=== PATIENT | female | born 1985 | race Caucasian/White ===

== ENCOUNTER 2022-03-26 11:03 | Emergency (ER) | payer BC ==
[~2022-03-26] VITALS: Ht 157.5 cm; Wt 60.8 kg
[2022-03-26 11:11] VITALS: BP 137/91
[2022-03-26] MEDS ORDERED: PROCHLORPERAZINE 10 MG/2 ML VIAL IM ONE (12:00)
--- NOTE | 2022-03-26 12:25 | NUR ---
37F PRESENTS TO ED WITH C/O INTERMITTENT HEADACHES X4 DAYS. PT REPORTS A CONSTANT, THROBBING LIKE, 10/10 NON RADIATING PAIN, AND INTERMITTENT NAUSEA; DENIES ANY VOMITING EPISODES. PT REPORTS TAKING NAPROSYN AT 1030 WITH MILD RELIEF. PT DENIES TRAUMA/INJURY, VISION CHANGES OR DIZZINESS.
[2022-03-26] MEDS ORDERED: IMI50 PO (12:46)
--- NOTE | 2022-03-26 12:51 | NUR ---
Patient discharged with v/s stable. Written and verbal after care instructions about migraine headache given and explained. Patient alert, oriented and verbalized understanding of instructions. Ambulatory with steady gait. All questions addressed prior to discharge. ID band removed. Patient advised to follow up with PMD. Rx of Sumatriptan given. Patient educated on indication of medication including possible reaction and side effects. Opportunity to ask questions provided and answered.
== END 2022-03-26 12:51 | disposition home or self-care (01) ==
LOC: MED 11:03
DX: G43.909 Migraine, unspecified, not intractable, without status migrainosus (principal); R11.0 Nausea; Z79.899 Other long term (current) drug therapy; Z91.012 Allergy to eggs
CPT/HCPCS: 96372; 99283; J0780; Q0163